=== PATIENT | female | born 1990 | race Two or more races ===

== ENCOUNTER 2025-01-11 14:25 | Emergency (ER) | payer OTHER ==
[~2025-01-11] VITALS: Ht 154.9 cm; Wt 68.0 kg
[2025-01-11] MEDS ORDERED: PRENATAL + DHA1 EAC1 (15:49)
[2025-01-11] MEDS ORDERED: ONDANSETRON HCL 2 MG/ML VIAL IV ONE (17:00)
[2025-01-11] MEDS ORDERED: RINGERS SOLUTION,LACTATED 1,000 ML IV ONE (17:00)
[2025-01-11] MEDS ORDERED: FAMOtidine 10 MG/ML (4ML VIAL) IV ONE (17:00)
[2025-01-11] MEDS ORDERED: FAMOTIDINE/PF 20 MG/2 ML VIAL ONE (17:46)
[2025-01-11] MEDS ORDERED: ONDANSETRON HCL 2 MG/ML VIAL ONE (17:46)
[2025-01-11 17:50] LABS: BASO % 0.3 % (0.1-1.2); EOS # 0.04 (0.04-0.54); EOS % 0.4 % (0.7-7.0); LYMPH # 2.37 (1.18-3.74); LYMPH % 23.9 % (19.3-53.1); MEAN PLATELET VOLUME 10.90 fl (9.4-12.4); MONO # 0.55 (0.24-0.82); MONO % 5.5 % (4.7-12.5); NEUT # 6.92 (1.56-6.13); NEUT % 69.7 % (34.0-71.1); RED CELL DISTRIBUTION WIDTH 12.6 % (11.6-14.4)
[2025-01-11 18:07] LABS: BUN CREA RATIO 16.0 (7.0-25.0); CREATININE SERUM 0.44 mg/dL (0.55-1.02); GFR 163.68; GLUCOSE FASTING 80.0 mg/dL (65-100); INR 0.97; OSMOLALITY SERUM 276.0 MOSM/KG (275-295)
[2025-01-11 21:50] LABS: URINE APPEARANCE Cloudy; URINE BILIRRUBIN Negative (NEGATIVE); URINE BLOOD Negative; URINE COLOR Yellow; URINE GLUCOSE Negative (NEGATIVE); URINE LEUKOCYTE Negative; URINE NITRATE Negative; URINE PROTEIN Negative (NEGATIVE); URINE UROBILINOGEN 0.2 E.U./dl
[2025-01-11 21:55] LABS: URINE BACTERIA 124.7 uL (0.0-1933); URINE EPITHELIAL CELLS 25.5 uL (0.0-38.8); URINE RBC 4.9 uL (0.0-20.8); URINE WBC 24.1 uL (0.0-23.2)
[2025-01-11 21:57] LABS: URINE CAST 0.00 uL (0.0-1.40); URINE KETONE 40 (NEGATIVE)
== END 2025-01-11 23:12 | disposition home or self-care (01) ==
LOC: ER 14:25
PROVIDERS: General Practice
DX: O99.611 Diseases of the digestive system complicating pregnancy, first trimester (principal); K31.89 Other diseases of stomach and duodenum; K29.70 Gastritis, unspecified, without bleeding; O43.891 Other placental disorders, first trimester; Z3A.11 11 weeks gestation of pregnancy; N28.1 Cyst of kidney, acquired; N20.0 Calculus of kidney

== ENCOUNTER 2025-03-23 07:30 | Outpatient (CLI) | payer OTHER ==
[~2025-03-23 07:30] MED LIST: PRENATAL + DHA1 EAC1
== END 2025-03-23 07:43 | disposition home or self-care (01) ==
LOC: PRENATAL 07:30
PROVIDERS: ATTEND Obstetrics & Gynecology Maternal & Fetal Medicine
DX: O44.02 Complete placenta previa NOS or without hemorrhage, second trimester (principal); O10.012 Pre-existing essential hypertension complicating pregnancy, second trimester; O28.1 Abnormal biochemical finding on antenatal screening of mother; Z3A.21 21 weeks gestation of pregnancy

== ENCOUNTER → 2025-04-06 | Emergency (ER) | payer OTHER ==
[~2025-04-06] MED LIST changes: +FOLIC ACID0.4 MG PO; +LABETALOL HCL100 MG PO
== END | disposition left against medical advice (07) ==
LOC: ER 20:03
DX: Z53.21 Procedure and treatment not carried out due to patient leaving prior to being seen by health care provider (principal)